=== PATIENT | female | born 1995 | race Two or more races ===

== ENCOUNTER 2024-06-11 16:01 | Emergency (ER) | payer OTHER ==
[~2024-06-11] VITALS: Ht 154.9 cm
[2024-06-11] MEDS ORDERED: 0.9 % SODIUM CHLORIDE 1,000 ML IV STA (16:44)
[2024-06-11] MEDS ORDERED: MEPERIDINE HCL 25 MG/ML AMPUL IV ONE (16:45)
[2024-06-11] MEDS ORDERED: ONDANSETRON HCL 2 MG/ML VIAL ONE (16:50)
[2024-06-11 17:42] LABS: HEMATOCRIT 41.8 % (36.0-45.00); HEMOGLOBIN 13.7 g/dL (12.0-15.00); MEAN CELL VOLUME 87.8 fL (80.00-100.00); MEAN CORPUSCULAR HEMOGLOBIN 28.7 pg (27.00-32.0); MEAN CORPUSCULAR HGB CONC 32.7 g/dl (32.0-36.0); PLATELET COUNT 266 K/uL (150-450); RED BLOOD COUNT 4.76 M/uL (4.00-6.00); RED CELL DISTRIBUTION WIDTH 13.4 % (11.5-14.5)
[2024-06-11 18:03] LABS: CALCIUM 9.2 mg/dL (8.5-10.1); CREATININE SERUM 0.82 mg/dL (0.55-1.02); GFR 83.01; POTASSIUM 3.79 mEq/L (3.5-5.1)
[2024-06-11 18:27] LABS: PH,URINE 6.5 (5.0-8.0); URINE APPEARANCE Clear; URINE BILIRRUBIN Negative (NEGATIVE); URINE BLOOD Negative; URINE COLOR Yellow; URINE GLUCOSE Negative (NEGATIVE); URINE LEUKOCYTE Negative; URINE NITRATE Negative; URINE PROTEIN Trace (NEGATIVE)
[2024-06-11 18:31] LABS: URINE BACTERIA 840.7 uL (0.0-1933); URINE EPITHELIAL CELLS 11.3 uL (0.0-38.8); URINE WBC 6.6 uL (0.0-23.2)
[2024-06-11 18:43] LABS: URINE CAST 0.73 uL (0.0-1.40); URINE KETONE 80 (NEGATIVE); URINE RBC 1.3 uL (0.0-20.8)
[2024-06-11] MEDS ORDERED: MEPERIDINE HCL/PF 50 MG/ML VIAL IM ONE (18:45)
[2024-06-11] MEDS ORDERED: DIATRIZOATE MEGLUMINE, SODIUM 30 ML BOTTLE ONE (18:57)
[2024-06-11 23:48] VITALS: BP 97/64; O2SAT 98
[2024-06-12] MEDS ORDERED: FAMOTIDINE/PF 20 MG/2 ML VIAL IV PUSH STA (00:27)
[2024-06-12] MEDS ORDERED: FAMOTIDINE/PF 20 MG/2 ML VIAL ONE (00:31)
[2024-06-12] MEDS ORDERED: HYOSCYAMINE SULFATE 0.125 MG TAB.SUBL ONE (00:37)
[2024-06-12] MEDS ORDERED: KETOROLAC TROMETHAMINE 30 MG VIAL IV STA (02:17)
[2024-06-12] MEDS ORDERED: KETO10TA2 PO (03:15)
== END 2024-06-12 03:30 ==
LOC: ER 16:03
PROVIDERS: Emergency Medicine
DX: N83.291 Other ovarian cyst, right side (principal); Z88.8 Allergy status to other drugs, medicaments and biological substances